=== PATIENT | male | born 1945 | race Caucasian/White ===

== ENCOUNTER → 2018-05-06 | Outpatient (CLI) | payer MEDICARE | END | disposition home or self-care (01) | LOC: CFH 07:13 | PROVIDERS: ATTEND Internal Medicine Cardiovascular Disease | DX: I25.9 Chronic ischemic heart disease, unspecified (principal); I10 Essential (primary) hypertension; E11.9 Type 2 diabetes mellitus without complications; I25.2 Old myocardial infarction | CPT/HCPCS: 78452; 93017; A9502 ==

== ENCOUNTER 2018-05-11 06:59 | Outpatient (CLI) | payer MEDICARE | END 2018-05-11 23:59 | disposition home or self-care (01) | LOC: CVU 06:59 | PROVIDERS: ATTEND Internal Medicine Cardiovascular Disease | DX: I34.0 Nonrheumatic mitral (valve) insufficiency (principal) | CPT/HCPCS: 93306 ==

== ENCOUNTER 2018-05-13 10:58 | Observation (INO) | payer MEDICARE ==
[~2018-05-13] VITALS: Ht 172.7 cm; Wt 108.8 kg
[2018-05-13] MEDS ORDERED: FENTANYL PF 100 MCG/2ML ONE (13:15)
[2018-05-13] MEDS ORDERED: MIDAZOLAM 1 MG/ML, 2ML ONE ×2 (13:15→14:09)
[2018-05-13] MEDS ORDERED: VERAPAMIL 2.5 MG/ML, 2ML ONE (13:15)
[2018-05-13] MEDS ORDERED: LIDOCAINE-MPF 1%, 5ML ONE (13:16)
[2018-05-13] MEDS ORDERED: HEPARIN 1,000 UNITS/ML, 10ML ONE (13:16)
[2018-05-13 13:41] LABS: MEAN CORPUSCULAR HEMOGLOBIN 29.6 pg (27.5-34.5); MEAN CORPUSCULAR HGB CONC 34.3 g/dL (33.2-36.2); MEAN CORPUSCULAR VOLUME 86.1 fL (81-97); PLATELET COUNT 242 x10^3/uL (130-400); RED CELL DISTRIBUTION WIDTH 13.5 % (9.4-14.8)
[2018-05-13 13:42] LABS: LYMPHOCYTES % (AUTO) 33 % (22-44); MEAN PLATELET VOLUME 7.9 fL (7.4-10.4); MONOCYTES % (AUTO) 9 % (2-9); NEUTROPHILS % (AUTO) 55 % (42-75)
[2018-05-13 13:43] LABS: EOSINOPHILS % (AUTO) 3 % (1-7); LYMPHOCYTES # (AUTO) 2.34 x10^3/uL (1-3.4); MONOCYTES # (AUTO) 0.63 x10^3/uL (0.2-0.8); NEUTROPHILS # (AUTO) 3.88 x10^3/uL (1.8-6.8)
[2018-05-13 13:44] LABS: BASOPHILS # (AUTO) 0.04 x10^3/uL (0-0.1); BASOPHILS % (AUTO) 0 % (0-1); EOSINOPHILS # (AUTO) 0.22 x10^3/uL (0-0.4); MD NO
[2018-05-13] MEDS ORDERED: BIVALIRUDIN 250 MG ONE ×2 (14:03→14:04)
[2018-05-13] MEDS ORDERED: PRASUGREL 10 MG TABLET ONE (14:03)
[2018-05-13 14:58] LABS: ALANINE AMINOTRANSFERASE 53 U/L (12-78); ALBUMIN 4.1 g/dL (3.4-5.0); ALKALINE PHOSPHATASE 55 U/L (45-117); ANION GAP 8 mmol/L (5-15); CALCIUM 9.1 mg/dL (8.5-10.1); CHLORIDE 103 mmol/L (98-107); CREATININE 0.89 mg/dL (0.7-1.3); TOTAL PROTEIN 7.6 g/dL (6.4-8.2)
[2018-05-13] MEDS: SODIUM CHLORIDE 0.9% 1,000 ML IV SCH ×2 (15:01→23:01)
[2018-05-13] MEDS ORDERED: BIVALIRUDIN 250 MG in SODIUM CHLORIDE 0.9% 50 ML IV SCH (15:01)
[2018-05-13] MEDS ORDERED: ACETAMINOPHEN 325 MG TABLET PO PRN (15:30)
[2018-05-13] MEDS ORDERED: ONDANSETRON 2MG/ML, 2ML IVPush PRN (15:30)
[2018-05-13] MEDS ORDERED: ZOLPIDEM 5MG TABLET PO PRN (15:30)
[2018-05-13 16:23] VITALS: BP 137/80
[2018-05-13] MEDS: PLEASE ENTER ALLERGIES MC SCH (16:30)
[2018-05-13] MEDS: PLEASE ENTER HEIGHT AND WEIGHT MC SCH (16:30)
[2018-05-13] MEDS: GlyBURIDE 5 MG TABLET PO SCH (18:23)
[2018-05-13] MEDS: METOPROLOL TARTRATE 25 MG TABLET PO SCH (18:23)
[2018-05-13 18:41] VITALS: BP 125/78
[2018-05-13] MEDS ORDERED: ATORVASTATIN 40 MG TABLET PO SCH (21:00)
[2018-05-14] MEDS: PLEASE ENTER ALLERGIES MC SCH ×2 (00:30→08:03)
[2018-05-14] MEDS: PLEASE ENTER HEIGHT AND WEIGHT MC SCH ×2 (00:30→08:03)
[2018-05-14 01:30] VITALS: BP 122/81
[2018-05-14 05:42] LABS: ANION GAP 6 mmol/L (5-15); CALCIUM 8.8 mg/dL (8.5-10.1); CHLORIDE 104 mmol/L (98-107); CREATININE 0.97 mg/dL (0.7-1.3)
[2018-05-14] MEDS: METOPROLOL TARTRATE 25 MG TABLET PO SCH (05:57)
[2018-05-14] MEDS: SODIUM CHLORIDE 0.9% 1,000 ML IV SCH (07:01)
[2018-05-14] MEDS: GlyBURIDE 5 MG TABLET PO SCH (08:02)
[2018-05-14 08:25] VITALS: BP 117/75
[2018-05-14] MEDS ORDERED: GLYB5TAB3 PO (08:45)
[2018-05-14] MEDS ORDERED: METO25TA35 PO (08:45)
[2018-05-14] MEDS ORDERED: ATOR40TA78 PO (08:45)
[2018-05-14] MEDS ORDERED: TICA90TA PO (08:45)
[2018-05-14] MEDS ORDERED: HYDR25TA6 PO (08:45)
[2018-05-14] MEDS ORDERED: PRASUGREL 10 MG TABLET PO SCH (09:00)
[2018-05-14] MEDS ORDERED: HYDROCHLOROTHIAZIDE 25 MG TABLET PO SCH (09:00)
== END 2018-05-14 11:15 | disposition home or self-care (01) ==
LOC: CACL 10:58 → 5SO 15:01 → CACL 15:01 → 5SO 16:07 → DCLOUNGE 05-14 11:00
PROVIDERS: ADMIT Internal Medicine Cardiovascular Disease; ATTEND Internal Medicine Cardiovascular Disease
DX: I25.110 Atherosclerotic heart disease of native coronary artery with unstable angina pectoris (principal); E11.9 Type 2 diabetes mellitus without complications; E78.2 Mixed hyperlipidemia; I10 Essential (primary) hypertension; Z79.899 Other long term (current) drug therapy
CPT/HCPCS: 36415; 80048; 80053; 85014; 85018; 85025; 93005; 93458; 93571; 99156; 99157; C1725; C1769; C1874; C1887; C1894; C9600; G0378; J0153; J0583; J1644; J2250; J3010; Q9967

== ENCOUNTER 2019-01-11 13:05 | Outpatient (CLI) | payer MEDICARE ==
[~2019-01-11 13:05] MED LIST: ATOR40TA78 PO; GLYB5TAB3 PO; HYDR25TA6 PO; METO25TA35 PO; REGADENOSON 0.4 MG/5 ML SYRINGE ONE; TICA90TA PO
== END 2019-01-11 23:59 | disposition home or self-care (01) ==
LOC: CFH 13:05
PROVIDERS: ATTEND Internal Medicine Cardiovascular Disease
DX: R07.89 Other chest pain (principal); I10 Essential (primary) hypertension; Z88.6 Allergy status to analgesic agent; Z91.030 Bee allergy status
CPT/HCPCS: 78452; 93017; A9502; J2785